=== PATIENT | female | born 1940 | race Caucasian/White ===

== ENCOUNTER 2017-01-18 09:29 | Emergency (ER) | payer MEDICARE ==
--- NOTE | 2017-01-18 09:42 | ERNOTE ---
Medical Problem HPI - General Time Seen by Provider: 01/18/17 09:39 Source: patient Exam Limitations: no limitations - Immun/Allergies/Home Medications Allergies/Adverse Reactions: Allergies morphine Allergy (Severe, Verified 01/18/17 09:40) Shortness of Breath Home Medications: HOME MEDICATIONS amLODIPine BESYLATE [Norvasc (Amlodipine)] 5 mg PO DAILY 12/12/12 [Last Taken Unknown] Crestor 10 mg PO DAILY 01/18/17 [Last Taken Unknown] Ibuprofen [Motrin] 600 mg PO TID PRN #30 tab 01/18/17 [Last Taken Unknown] Lisinopril [Zestril] 5 mg PO DAILY 01/18/17 [Last Taken Unknown] Metoprolol Tartrate [Lopressor] 50 mg PO DAILY 01/18/17 [Last Taken Unknown] Sertraline HCl [Zoloft] 25 mg PO DAILY 01/18/17 [Last Taken Unknown] - History of Present History Narrative: This patient fell last night at home onto her right hand and onto her face. She had an episode of epistaxis from both nares but she did not present to the emergency room at that time. She at this time complains of pain in the nasal area feeling congested pain in the right forehead area and pain in the right hand. She does not report any loss of consciousness. She is not on any anticoagulants. Review of Systems - Review of Systems Constitutional: Present: no symptoms reported EYE: Present: no symptoms reported ENT: Present: See HPI Respiratory: Present: no symptoms reported Cardiology: Present: no symptoms reported Gastrointestinal/Abdominal: Present: no symptoms reported Skin: Present: See HPI - patient has abrasion of her right knee Physical Exam - Physical Exam General Appearance: Present: wd/wn, alert, no apparent distress Ears, Nose, Throat: Present: normal pharynx, other - patient has an abrasion on her nose she has ecchymosis swelling and tenderness in the right. Superior orbital ridge Neck: Present: normal inspection, nontender, supple Respiratory: Present: no respiratory distress, normal breath sounds, no accessory muscle use, chest nontender, lungs clear Cardiovascular/Chest: Present: regular rate, rhythm, no murmur, normal peripheral pulses Gastrointestinal/Abdominal: Present: normal bowel sounds, nontender, soft Extremity Exam: Present: other - patient has abrasion of her right knee on the patellar area additionally she has swelling and tenderness in the dorsal aspect of her right hand. ED Progress - Vital Signs Patient's Vital Signs:: I have reviewed the patient's vital signs. - X-Ray X-Ray #2 X-Ray: hand - CT/Ultrasound CT/Ultrasound Narrative: T of maxillofacial region was ordered and reviewed by me and read by the radiologist as no fracture. Plan - Plan Plan: While the x-ray of the hand does not reveal an obvious fracture, the area is swollen and tender and patient has pain with moving and flexing the right hand as such this examiner will choose to treat this patient's right hand as a fracture and perhaps repeat x-rays may be necessary in the future. This patient be educated to follow up with her primary care physician. CT of maxillofacial bones was read as negative Departure - Departure Clinical Impression: Hand contusion Qualifiers: Encounter type: initial encounter Laterality: right Qualified Code(s): S60.221A - Contusion of right hand, initial encounter Nasal contusion Qualifiers: Encounter type: initial encounter Qualified Code(s): S00.33XA - Contusion of nose, initial encounter Condition: Good Instructions: Hand Contusion, [id number] Referrals: Itz Altman MD [Primary Care Provider] - Prescriptions: Ibuprofen [Motrin] 600 mg PO TID PRN #30 tab PRN Reason: Pain
--- OUTSIDE RECORDS SUMMARY | 2017-01-18 09:59 | XMS REPORT | Continuity of Care Document ---
:1940 Author Organization [facility] ([facility]) Address [address] [place] [address] Phone [phone] Care Team Providers Name Role Phone Chirag Johnston A Primary Care Provider [phone] Source Comments This disclosure is being made pursuant to the Care Everywhere program, applicable federal and state laws, and may not contain all informaitonavailable regarding this patient.[facility] (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 Social History Tobacco Use Types Packs/Day Years Used Date Never Assessed Last Filed Vital Signs Vital Sign Reading Time Taken Blood Pressure - - Pulse - - Temperature - - Respiratory Rate - - Height 1.57 m (5' 1.81") 04/13/2003 2:15 PM CDT Weight 78.699 kg (173 lb 8 oz) 04/13/2003 2:15 PM CDT Body Mass Index 31.93 04/13/2003 2:15 PM CDT Oxygen Saturation - - Plan of Care Health Maintenance Due Date Last Done Comments Hepatitis B Vaccine (1 of 3 - Primary Series) 1940 Tdap Vaccine 11/30/1950 Lipid Disorder Screening 11/30/1957 Td Vaccine 11/30/1957 Mammogram 1979 Colonoscopy 11/30/1989 Zoster Vaccine 1999 Osteoporosis Screening (DXA Bone Density) 11/30/2004 Pneumococcal Vaccine (1 of 2 - PCV13) 11/30/2004 Influenza Vaccine: Seasonal (#1) 03/17/2016 Results from Last 3 Months Not on file
[2017-01-18] MEDS ORDERED: KETOROLAC TROMETHAMINE 30 MG/ML VIAL ONE (10:47)
[2017-01-18] MEDS ORDERED: KETOROLAC TROMETHAMINE 30 MG/ML VIAL IM ONE (10:47)
[2017-01-18 11:18] VITALS: BP 151/87
== END 2017-01-18 11:15 | disposition home or self-care (01) ==
LOC: ER 09:29
PROC: 2W3EX1Z Immobilization of Right Hand using Splint (ICD-10-PCS; principal; 2017-01-18)
DX: S60.221A Contusion of right hand, initial encounter (principal); S00.33XA Contusion of nose, initial encounter; W19.XXXA Unspecified fall, initial encounter; Y93.9 Activity, unspecified; Y92.009 Unspecified place in unspecified non-institutional (private) residence as the place of occurrence of the external cause